=== PATIENT | female | born 1935 | race Caucasian/White ===

== ENCOUNTER 2023-01-08 08:59 | Outpatient (CLI) | payer MEDICARE, SELFPAY ==
--- NOTE | ~2023-01-08 | MR_ITS ---
MRI of the lumbar spine Clinical History: Back pain Technique: Axial T2-weighted images, and sagittal T1-weighted, T2-weighted, and T2 fat-sat images wer e acquired. Findings: There is levoscoliosis of the lumbar spine. There is 3 mm anterolisthesis of L3 over L4. Th ere is 3 mm retrolisthesis of L1 over L2. There is chronic mild to moderate compression fracture at t he superior endplate of L2. No suspicious bone marrow signal abnormality seen. At L1-L2, there is disc bulge and mild facet arthropathy. No juan a central canal stenosis. There is s evere right neural foraminal narrowing. Left neural foramen preserved. At L2-L3, there is disc bulge and mild to moderate facet arthropathy. No central canal stenosis. Ther e is severe right neural foraminal narrowing. Left neural foramen preserved. At L3-L4, there is mild disc bulge. There is severe right neural foraminal narrowing. Left neural for amen preserved. No central canal stenosis. At L4-L5, there is diffuse disc bulge with severe facet arthropathy. No central canal stenosis. There is severe left neural foraminal narrowing. There is mild right neural foraminal narrowing. At L5-S1, there is diffuse disc bulge with severe facet arthropathy. No central canal stenosis. There is severe left neural foraminal narrowing. Right neural foramen preserved. Paravertebral soft tissues are unremarkable. Impression: Levoscoliosis with 3 mm anterolisthesis of L3 over L4, and 3 mm retrolisthesis of L1 and L2. Chronic mild to moderate compression fracture of L2. Moderate to severe degenerative spondylosis, as above. Reviewed, dictated and finalized at [facility]. [employer] Impression: Levoscoliosis with 3 mm anterolisthesis of L3 over L4, and 3 mm retrolisthesis of L1 and L2. Chronic mild to moderate compression fracture of L2. Moderate to severe degenerative spondylosis, as above.
== END 2023-01-08 09:00 ==
PROVIDERS: Visit Provider Internal Medicine
DX: M47.896 Other spondylosis, lumbar region (principal); S32.020A Wedge compression fracture of second lumbar vertebra, initial encounter for closed fracture; X58.XXXA Exposure to other specified factors, initial encounter
CPT/HCPCS: 72148